=== PATIENT | female | born 1975 | race Caucasian/White ===

== ENCOUNTER 2017-02-05 11:27 | Emergency (ER) | payer OTHER ==
[~2017-02-05] VITALS: Ht 160 cm; Wt 49.5 kg
[2017-02-05 11:56] VITALS: Ht 160 cm; Wt 49.5 kg
[2017-02-05] MEDS ORDERED: CEFTRIAXONE 250 MG INJ IM ONE (13:30)
[2017-02-05] MEDS ORDERED: AZITHROMYCIN 250 MG TAB PO ONE (13:30)
[2017-02-05 13:41] LABS: URINE BLOOD (Dip) POC Negative (NEGATIVE)
--- NOTE | 2017-02-05 14:25 | RADRPT ---
PROCEDURE: US Pelvis. CLINICAL INDICATION: Pelvic pain. TECHNIQUE: Multiple sonographic images of the pelvis were obtained utilizing a transabdominal and endovaginal technique. The images were reviewed on a PACS workstation. COMPARISON: None available. FINDINGS: The uterus is visualized and measures 8.3 x 3.4 x 6.1 cm. The endometrial echo complex is prominent and measures 14.7 mm. There are Nabothian cysts in the cervix. There is no evidence for free fluid. The right ovary was not visualized. The left ovary has a normal echotexture and measures 3.5 x 3.1 x 3.0 cm. There is a 2.8 x 2.7 x 2.4 cm left ovarian cyst. No adnexal masses are noted. IMPRESSION: 1. 2.8 x 2.7 x 2.4 cm unilocular left ovarian cyst. 2. Focally prominent endometrium which could be due to the phase of the menstrual cycle. Endometria l myoma or polyp or endometrial hyperplasia could have this appearance. RPTAT: [facility] Physician Luz Date Time Electronically viewed and signed by Physician Luz on 02/05/2017 14:25 /
--- NOTE | 2017-02-05 14:45 | ERD ---
ER Documentation Chief Complaint Date/Time DATE: 02/05/17 TIME: 14:44 Chief Complaint PARTNER TESTING POSITIVE FOR STD, PELVIC PAIN VAGINA DISCHARGE HPI This 41-year-old female complains of approximately 2-3 day history of lower abdominal pain and vaginal discharge. History is significant for being called by recent sexual partner that he was diagnosed with chlamydia. She denies any fevers, vomiting and denies . ROS All systems reviewed and are negative except as per history of present illness. PMhx/Soc Medical and Surgical Hx: pt denies Medical Hx, pt denies Surgical Hx Hx Alcohol Use: No Hx Substance Use: No Hx Tobacco Use: No Smoking Status: Never smoker Physical Exam Vitals Vital Signs Date Time Temp Pulse Resp B/P Pulse Ox O2 Delivery O2 Flow Rate FiO2 02/05/17 11:56 98.4 103 20 124/74 100 Physical Exam Const: [] Alert, not ill-appearing. Head: Atraumatic Eyes: Normal Conjunctiva ENT: Normal External Ears, Nose and Mouth. Neck: Full range of motion..~ No meningismus. Resp: Clear to auscultation bilaterally Cardio: Regular rate and rhythm, no murmurs Abd: Soft, minimal suprapubic tenderness. No tenderness at McBurney's point. non distended. Normal bowel sounds Skin: No petechiae or rashes Back: No midline or flank tenderness Ext: No cyanosis, or edema Neur: Awake and alert Psych: Normal Mood and Affect Results 24 hrs Laboratory Tests Test 02/05/17 13:42 Bedside Urine pH (LAB) 5.5 Bedside Urine Protein (LAB) Trace Bedside Urine Glucose (UA) Negative Bedside Urine Ketones (LAB) Negative Bedside Urine Blood Negative Bedside Urine Nitrite (LAB) Negative Bedside Urine Leukocyte Esterase (L Negative Current Medications Medications (Trade) Dose Ordered Sig/Vianca Route PRN Reason Start Time Stop Time Status Last Admin Dose Admin Ceftriaxone Sodium (Rocephin) 250 mg ONCE ONCE IM 02/05/17 13:30 02/05/17 13:33 DC 02/05/17 14:23 Azithromycin (Zithromax) 1,000 mg ONCE ONCE PO 02/05/17 13:30 02/05/17 13:33 DC 02/05/17 14:23 Procedures/MDM Given the history patient was treated presumptively with Zithromax 1 g by mouth Rocephin 250 mg IM. Pelvic ultrasound shows left-sided ovarian septated cyst without evidence of tubo-ovarian abscess or additional acute findings. Urine shows no acute abnormalities and hCG is negative. Patient presents with lower pelvic pain with a history of STD exposure. Patient was discharged home instructions to avoid infected sex for a week and await STD results. Patient is advised to follow-up with primary doctor return to the ER for fevers, vomiting, new or worsening symptoms. Signs and symptoms do not suggest appendicitis, tubo-ovarian abscess, acute abdomen, additional emergent causes of lower abdominal pain. Departure Diagnosis: Primary Impression: Acute pain in female pelvis Condition: Stable Patient Instructions: Cervicitis (Std), Treated, Ovarian Cyst Additional Instructions: He has been treated for chlamydia and gonorrhea. Ultrasound shows cyst but no other abnormal findings. Recheck for fevers, vomiting, worsening pain, new worsening symptoms with primary care doctor. Recommend no unprotected sex for 1 week. STD results should be back within the next week. DENNIS SHIN MD Feb 05, 2017 14:45
[2017-02-05 14:55] VITALS: BP 122/72; PULSE 66; RESP 18; TEMP 98.4
== END 2017-02-05 14:55 | disposition home or self-care (01) ==
LOC: FTE 11:27
DX: R10.2 Pelvic and perineal pain (principal)
CPT/HCPCS: 76830; 76856; 81003; 87591; 96372; J0696; Z7502; Z7610